=== PATIENT | male | born 1965 | race American Indian/Alaskan Native ===

== ENCOUNTER 2019-01-01 20:40 | Emergency (ER) | payer SELFPAY ==
--- NOTE | 2019-01-01 22:11 | Emergency Department Report ---
Blank Doc - Documentation Documentation: 53-year-old male that presents with left rib pain and mid back pain s/p fall. Denies any neck or head pains. Denies any other pains. This initial assessment/diagnostic orders/clinical plan/treatment(s) is/are subject to change based on patient's health status, clinical progression and re- assessment by fellow clinical providers in the ED. Further treatment and workup at subsequent clinical providers discretion. Patient/guardians urged not to elope from the ED as their condition may be serious if not clinically assessed and managed. Initial orders include: 1- Patient sent to [facility] for further evaluation and treatment 2- xrays
--- NOTE | 2019-01-01 22:52 | XRay Report ---
Thoracic spine, 3 views INDICATION: Pain following fall tonight FINDINGS: The vertebral body heights and disc spaces are intact. No fracture or subluxation. No spurr ing or paraspinal mass. No significant abnormality. IMPRESSION: Negative thoracic spine. Signer Name: Aubrey Anderson MD Signed: 01/01/2019 10:48 PM Workstation Name: [id number]
--- NOTE | 2019-01-01 22:54 | XRay Report ---
Left RIBS with PA chest, 3 views INDICATION: Left-sided chest pain following fall FINDINGS: There is an acute, slightly displaced fracture through the left posterior lateral ninth rib . The remaining ribs are intact. Accompanying chest x-ray shows no effusion or pneumothorax. Signer Name: Aubrey Anderson MD Signed: 01/01/2019 10:50 PM Workstation Name: [id number]
[2019-01-02] MEDS ORDERED: KETOROLAC 30 MG/1 ML INJ IM ONE (00:10)
[2019-01-02] MEDS ORDERED: CYCLOBENZAPRINE 10 MG TAB PO ONE (00:11)
[2019-01-02] MEDS ORDERED: HYDROcodone/ACETAMINOPHEN 7.5-325MG TAB PO ONE (00:38)
[2019-01-02] MEDS ORDERED: ONDANSETRON 4 MG ODT TAB PO ONE (00:39)
[2019-01-02 00:42] VITALS: BP 140/59
--- NOTE | 2019-01-02 01:43 | Emergency Department Report ---
ED Fall HPI - General Chief Complaint: Fall Stated Complaint: FALL Time Seen by Provider: 01/01/19 22:10 Source: patient Mode of arrival: Ambulatory - History of Present Illness Initial Comments: Patient is a 53-year-old -[place] male with a history of chronic alcoholism presents to the ED with left lateral chest wall pain and mid posterior thoracic pain after he tripped and fell onto an Man-hole about 8 hours ago and ended up hitting his left lateral chest wall against a concrete. Patient states that he has been having shortness of breath with severe left rib pain, and worsening upper back pain since the fall. Patient denies loss of consciousness, neck pain, dizziness, numbness and tingling of upper and lower extremities bilaterally, low back pain, abdominal pain, head or neck injuries, nausea and vomiting or change in vision. 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 denies: headache, neck pain, numbness, weakness, abdominal pain, hematuria, unable to walk, lightheaded, vertigo, confusion - Related Data Previous Rx's Medication Instructions Recorded Last Taken Type Cyclobenzaprine [Flexeril] 10 mg PO Q8H PRN #21 tablet 01/02/19 Unknown Rx HYDROcodone/APAP 5-325 [[place] 1 each PO Q6HR PRN #12 tablet 01/02/19 Unknown Rx 5/325] Ibuprofen [Motrin] 600 mg PO Q8H PRN #24 tablet 01/02/19 Unknown Rx Allergies Allergy/AdvReac Type Severity Reaction Status Date / Time No Known Allergies Allergy Unverified 01/01/19 22:07 ED Review of Systems ROS: Stated complaint: FALL Other details as noted in HPI Constitutional: denies: chills, fever Eyes: denies: eye pain, eye discharge, vision change ENT: denies: ear pain, throat pain Respiratory: denies: cough, shortness of breath, wheezing Cardiovascular: chest pain (left lateral chest wall and rib pain). denies: palpitations Endocrine: no symptoms reported. denies: excessive sweating, flushing, increased thirst, increased urine, unexplained weight gain Gastrointestinal: denies: abdominal pain, nausea, diarrhea Genitourinary: denies: urgency, dysuria Musculoskeletal: back pain (Mid-posterior thoracic pain), arthralgia, myalgia. denies: joint swelling Skin: denies: rash, lesions Neurological: denies: headache, weakness, paresthesias Psychiatric: denies: anxiety, depression Hematological/Lymphatic: denies: easy bleeding, easy bruising ED Past Medical Hx - Past Medical History Previous Medical History?: No Additional medical history: ulcer - Surgical History Additional Surgical History: abd - Social History Smoking Status: Current Every Day Smoker Substance Use Type: Alcohol, Cocaine - Medications Home Medications: Home Medications Medication Instructions Recorded Confirmed Last Taken Type Cyclobenzaprine [Flexeril] 10 mg PO Q8H PRN #21 tablet 01/02/19 Unknown Rx HYDROcodone/APAP 5-325 [[place] 1 each PO Q6HR PRN #12 tablet 01/02/19 Unknown Rx 5/325] Ibuprofen [Motrin] 600 mg PO Q8H PRN #24 tablet 01/02/19 Unknown Rx ED Physical Exam - General Limitations: No Limitations General appearance: alert, in no apparent distress - Head Head exam: Present: atraumatic, normocephalic, normal inspection - Eye Eye exam: Present: normal appearance, PERRL, EOMI Pupils: Present: normal accommodation - ENT ENT exam: Present: normal exam, normal orophraynx, mucous membranes moist, TM's normal bilaterally, normal external ear exam - Neck Neck exam: Present: normal inspection, full ROM. Absent: tenderness - Respiratory Respiratory exam: Present: normal lung sounds bilaterally, chest wall tenderness (left lateral chest wall pain). Absent: respiratory distress, wheezes, rales, rhonchi, stridor, accessory muscle use, decreased breath sounds, prolonged expiratory - Cardiovascular Cardiovascular Exam: Present: regular rate, normal rhythm, normal heart sounds. Absent: systolic murmur, diastolic murmur, rubs, gallop - GI/Abdominal GI/Abdominal exam: Present: soft, normal bowel sounds. Absent: tenderness, guarding, rebound, hyperactive bowel sounds, hypoactive bowel sounds, organomegaly, mass, bruit - Extremities Exam Extremities exam: Present: normal inspection, full ROM, normal capillary refill - Back Exam Back exam: Present: normal inspection, full ROM, tenderness (mid-posterior thoracic tenderness), muscle spasm, paraspinal tenderness (palpable mid posterior thoracic paraspinal musculoskeletal tenderness) - Neurological Exam Neurological exam: Present: alert, oriented X3, CN II-XII intact, normal gait, reflexes normal - Psychiatric Psychiatric exam: Present: normal affect, normal mood - Skin Skin exam: Present: warm, dry, intact, normal color. Absent: rash ED Course Vital Signs 01/01/19 01/02/19 21:00 00:39 Temperature 98.0 F 99 F Pulse Rate 113 H 97 H Respiratory 20 18 Rate Blood Pressure 132/80 Blood Pressure 140/59 [Left] O2 Sat by Pulse 96 97 Oximetry - Reevaluation(s) Reevaluation #1: 01/02/19 01:45 This is a 53-year-old male with a history of chronic alcoholism who presented to the ED with left lateral chest wall pain and mid posterior thoracic pain after he tripped and fell into a Manhole 8 hours ago. In the ED, patient is alert and oriented 3 and is not in distress but appears to be in severe pain. Patient was treated for pain in the ED and T-spine x-ray shows no acute fractures or subluxations. Chest x-ray shows an acute, slightly displaced fracture through the left posterior lateral ninth rib. The remaining ribs are intact. Accomp anying chest x-ray shows no effusion or pneumothorax. On reevaluation, patient's pain is well-controlled with medication, patient was discharged home on pain medications and was advised to follow-up with Dr. Santana the orthopedic surgeon in the next 2-3 days for reevaluation or return to the ED immediately if symptoms get worse. ED Medical Decision Making - Radiology Data Radiology results: report reviewed, image reviewed Findings [facility] [address] [place] [address] XRay Report Signed Patient: MEKA FLORENTINO MR#: [id number] 33 : 1965 Acct:[id number] Age/Sex: 53 / M ADM Date: 01/01/19 Loc: ED Attending Dr: Ordering Physician: STEPH DIANE NP Date of Service: 01/01/19 Procedure(s): XR ribs UNI w PA chest 3+V LT Accession Number(s): [id number] cc: STEPH DIANE NP Fluoro Time In Minutes: Left RIBS with PA chest, 3 views INDICATION: Left-sided chest pain following fall FINDINGS: There is an acute, slightly displaced fracture through the left posterior lateral ninth rib. The remaining ribs are intact. Accompanying chest x-ray shows no effusion or pneumothorax. Signer Name: Aubrey Anderson MD Signed: 01/01/2019 10:50 PM Workstation Name: [id number] Transcribed By: Dictated By: Aubrey Anderson MD Electronically Authenticated By: Aubrey Anderson MD Signed Date/Time: 01/01/192249 DD/ 47 Findings [facility] [address] [place] [address] XRay Report Signed Patient: MEKA FLORENTINO MR#: [id number] [birth year] : 1965 Acct:[id number] Age/Sex: 53 / M ADM Date: 01/01/19 Loc: ED Attending Dr: Ordering Physician: STEPH DIANE NP Date of Service: 01/01/19 Procedure(s): XR spine thoracic 2V Accession Number(s): [id number] cc: STEPH DIANE NP Fluoro Time In Minutes: Thoracic spine, 3 views INDICATION: Pain following fall tonight FINDINGS: The vertebral body heights and disc spaces are intact. No fracture or subluxation. No spurring or paraspinal mass. No significant abnormality. IMPRESSION: Negative thoracic spine. Signer Name: Aubrey Anderson MD Signed: 01/01/2019 10:48 PM Workstation Name: [id number] Transcribed By: DIEGO Dictated By: Aubrey Anderson MD Electronically Authenticated By: Aubrey Anderson MD Signed Date/Time: 01/01/192247 DD/ 46 TD/TT: - Medical Decision Making This is a 53-year-old male with a history of chronic alcoholism who presented to the ED with left lateral chest wall pain and mid posterior thoracic pain after he tripped and fell into a Manhole 8 hours ago. In the ED, patient is alert and oriented 3 and is not in distress but appears to be in severe pain. Patient was treated for pain in the ED and T-spine x-ray shows no acute fractures or subluxations. Chest x-ray shows an acute, slightly displaced fracture through the left posterior lateral ninth rib. The remaining ribs are intact. Accompanying chest x-ray shows no effusion or pneumothorax. On reevaluation, patient's pain is well-controlled with medication, patient was discharged home on pain medications and was advised to follow-up with Dr. Santana the orthopedic surgeon in the next 2-3 days for reevaluation or return to the ED immediately if symptoms get worse. - Differential Diagnosis left rib fracture; Left chest contusion; Muscle spasm of back Critical care attestation.: If time is entered above; I have spent that time in minutes in the direct care of this critically ill patient, excluding procedure time. ED Disposition Clinical Impression: Spasm of thoracic back muscle Left rib fracture Qualifiers: Encounter type: initial encounter Rib fracture type: single rib Fracture type: closed Qualified Code(s): S22.32XA - Fracture of one rib, left side, initial encounter for closed fracture Contusion of left chest wall Qualifiers: Encounter type: initial encounter Qualified Code(s): S20.212A - Contusion of left front wall of thorax, initial encounter Disposition: TO HOME OR SELFCARE Is pt being admited?: No Does the pt Need Aspirin: No Condition: Stable Instructions: Rib Fracture (ED), Back Pain (ED), Muscle Spasm (ED), Pulmonary Contusion (ED) Additional Instructions: Take medications with food, drink plenty of fluids and follow-up with your primary care physician in 7-10 days for reevaluation. Consider following up with the orthopedic surgeon manager provider relations Dr. Santana for further evaluation and 2-[address] Santana's office to schedule a follow-up appointment. Return to the ED immediately if symptoms get worse. Consider for alcohol rehabilitation. Prescriptions: Cyclobenzaprine [Flexeril] 10 mg PO Q8H PRN #21 tablet PRN Reason: Muscle Spasm Ibuprofen [Motrin] 600 mg PO Q8H PRN #24 tablet PRN Reason: Pain HYDROcodone/APAP 5-325 [[place] 5/325] 1 each PO Q6HR PRN #12 tablet PRN Reason: Pain Referrals: PRIMARY CARE, [Primary Care Provider] - 3-5 Days BYRON SANTANA MD [Staff Physician] - 3-5 Days Time of Disposition: 01:51 Print Language: [place] CITIZ[place]
== END 2019-01-02 02:10 | disposition home or self-care (01) ==
LOC: ED 20:40
DX: S22.32XA Fracture of one rib, left side, initial encounter for closed fracture (principal); S20.212A Contusion of left front wall of thorax, initial encounter; M62.830 Muscle spasm of back; F17.200 Nicotine dependence, unspecified, uncomplicated; F14.10 Cocaine abuse, uncomplicated; W01.0XXA Fall on same level from slipping, tripping and stumbling without subsequent striking against object, initial encounter; Y93.89 Activity, other specified; Y92.410 Unspecified street and highway as the place of occurrence of the external cause; Y99.8 Other external cause status
CPT/HCPCS: 71101; 72070; 96372; 99283; J1885; Q0162